=== PATIENT | female | born 1995 | race Caucasian/White ===

== ENCOUNTER → 2020-10-18 | Outpatient (CLI) | payer OTHER ==
--- NOTE | 2020-10-18 15:37 | PFTRPT ---
Site: [facility], [address] [place] [address], [id number] ID: [id number] Name: PARAMJIT SAN Visit Date: 10/18/2020 Second ID: [id number] Referring Doctor: Hallie Read D.O. Reviewing Doctor: Ryan Torrez MD Store Clerk: Horacio BERRY RRT Age: 25 : 1995 Sex: Female Race: Height: 63.00 Inches Weight: 242.00 Lbs BSA: 2.10 Order IDs: [id number] Requested Test(s): <RESP-PFT.PFT B/A> Diagnosis: SOB test meet the ATS standards for acceptability and repeatability. Pt was given four puffs of albuterol for post bronchodilator. Review Status: Not Reviewed Pre-Bronch Post-Bronch Pred Actual %Pred Actual %Chng SPIROMETRY FVC (L) 3.66 3.40 92 3.41 FEV1 (L) 3.13 2.90 92 2.89 FEV1/FVC (%) 85 85 100 85 FEF 25% (L/sec) 5.66 5.15 91 6.35 23 FEF 50% (L/sec) 4.57 3.64 79 3.85 5 FEF 75% (L/sec) 1.96 1.61 82 1.43 -11 FEF 25-75% (L/sec) 3.48 3.23 92 3.24 FEF Max (L/sec) 6.82 5.34 78 6.40 19 FIVC (L) 3.29 3.40 3 FIF 50% (L/sec) 4.48 2.88 64 3.99 38 FIF Max (L/sec) 3.21 4.28 33 MVV (L/min) 108 64 59 Expiratory Time (sec) 6.88 6.29 -8 Back Extrap Vol (L) 0.12 0.15 18 Time To FEFmax (sec) 0.119 0.108 -9 LUNG VOLUMES SVC (L) 3.62 3.54 97 IC (L) 2.24 3.23 144 ERV (L) 1.38 0.30 22 TGV (L) 2.66 2.10 78 RV (Pleth) (L) 1.28 1.79 139 TLC (Pleth) (L) 4.90 5.33 108 RV/TLC (Pleth) (%) 26 34 129 DIFFUSION DLCOunc (ml/min/mmHg) 24.83 21.34 85 DL/VA (ml/min/mmHg/L) 5.07 4.93 97 VA (L) 4.90 4.33 88 BHT (sec) 10.55 IVC (L) 3.32 TLC (SB) (L) 4.48 AIRWAYS RESISTANCE Raw (cmH2O/L/s) 1.86 0.77 41 Gaw (L/s/cmH2O) 1.03 1.34 129 sRaw (cmH2O*s) 4.76 1.92 40 sGaw (1/cmH2O*s) 0.20 0.55 274
== END ==
LOC: M CARPUL 14:31
PROVIDERS: ATTEND Student in an Organized Health Care Education/Training Program
DX: J45.909 Unspecified asthma, uncomplicated (principal)